=== PATIENT | male | born 1980 | race Caucasian/White ===

== ENCOUNTER 2023-09-27 10:07 | Outpatient (OUT) | payer MEDICAID, SELFPAY ==
--- NOTE | 2023-09-27 10:30 | XR_ITS ---
The [address] [address] Patient Name: ABRAM MONTANO MRN: [id number] date: 1980 Sex: M Assigned Patient Location: RAD Current Patient Location: RAD Accession/Order Number: [id number] Exam Date: 09/27/2023 10:33 Report Date: 09/27/2023 12:31 At the request of: BEBO KNUTSON Procedure: XR chest 2V EXAM: XR chest 2V HISTORY: positive quantiferon gold test COMPARISON: None. TECHNIQUE: PA and lateral views of the chest. FINDINGS: The cardiomediastinal silhouette is normal. No focal consolidation is identified. There is no pneumothorax. No pleural effusion is noted. The osseous structures are intact. XR/XR chest 2V IMPRESSION: No acute cardiopulmonary process. No radiographic evidence of active TB. Electronically authenticated by: KANIKA ANDERSON Date: 09/27/2023 12:31
== END 2023-09-27 10:08 | disposition home or self-care (01) ==
PROVIDERS: Visit Provider Nurse Practitioner Primary Care
DX: R76.12 Nonspecific reaction to cell mediated immunity measurement of gamma interferon antigen response without active tuberculosis (principal)
CPT/HCPCS: 71046